=== PATIENT | female | born 1955 | race Caucasian/White ===

== ENCOUNTER 2018-04-05 12:20 | Day surgery (SDC) | payer BC ==
--- NOTE | 2018-03-28 14:56 | HP ---
CC: Dr. Lisa Marshall * PREOPERATIVE HISTORY AND PHYSICAL: DATE OF ADMISSION: 04/05/18 This patient is scheduled for same-day surgery admission by Dr. Dalton on , 04/05/18. DATE OF PREOPERATIVE HISTORY AND PHYSICAL EXAMINATION: 03/28/18. ATTENDING SURGEON: Jose Cruz Dalton MD * (dictated by Yaquelin Wahl NP) CHIEF COMPLAINT: Gallbladder disease. HISTORY OF PRESENT ILLNESS: The patient is a 62-year-old female referred to Dr. Dalton from Dr. Lisa Marshall for evaluation of cholelithiasis. She has had attacks of right upper quadrant abdominal pain over and into February with the most recent attack, 03/22/18. These are characterized by right upper quadrant abdominal pain that radiates to the back and can last up to 5 hours. She has also had heartburn type symptoms, which responded to omeprazole, and she is no longer taking that. She denies any change in the color of urine or stool. She had an ultrasound of the abdomen, 03/09/18, at [facility] that revealed cholelithiasis without pericholecystic fluid or abnormal wall thickening; also during her workup, she was found to have a "shadow" in the right lung field and a followup CT scan was done and it was completely within normal limits as reviewed by Dr. Dalton. Dr. Dalton has examined the patient and reviewed imaging and has discussed with the patient the diagnosis of symptomatic cholelithiasis and has recommended laparoscopic cholecystectomy as a same-day surgery procedure. 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 Dr. Dalton described the nature of the surgical procedure, the rationale for the procedure, the relevant risks and benefits, and today I reviewed the typical postoperative care and recovery. The patient has had a chance to ask questions and stated that she understands the information and is satisfied with the answers given to her questions. She will sign surgical consent on the day of surgery. PAST MEDICAL HISTORY: 1. Psoriatic arthritis; cervical disk disorder. 2. Multiple joint pain. PAST SURGICAL HISTORY: section x2 and hysterectomy for uterine fibroids. MEDICATIONS: 1. Premarin 0.3 mg p.o. daily. 2. Multivitamin with calcium and vitamin D 4 chews daily. 3. Folic acid 1 mg daily. She is holding the following immunosuppressant medications for 2 weeks preoperatively and 2 weeks postoperatively: 1. Methotrexate 2.5 mg 8 tablets p.o. weekly. 2. Enbrel 50 mg/mL 1 mL subcu weekly. 3. Arava 20 mg p.o. daily. ALLERGIES: The following medications have caused sensitivities: 1. HYDROXYCHLOROQUINE. 2. INDOMETHACIN. 3. DICLOFENAC. None of those medications have caused hives or dyspnea. FAMILY HISTORY: No known gallbladder disease. No bleeding tendencies or clotting disorders. No history of deep vein thrombosis or pulmonary embolism. SOCIAL HISTORY: She is ; she quit smoking 25 years ago. She drinks on average 1 glass of wine daily. REVIEW OF SYSTEMS: Constitutional: No fevers, chills, excessive fatigue, or weight loss. Endocrine: No diabetes or thyroid disease. Hematologic: No easy bruising or bleeding. She has never received a blood transfusion. Respiratory: No dyspnea on exertion. No chronic cough. Cardiovascular: No anginal chest pain or palpitations. Gastrointestinal: No current nausea or vomiting or diarrhea. No GI bleeding or constipation. No change in the color of stool. No change in bowel habits. No current heartburn. Genitourinary: No dysuria. No change in the color of urine. Musculoskeletal: Mild multiple joint pains related to psoriatic arthritis. Integumentary: No chronic rashes or skin changes. Neurologic: No headache or blurred vision. General: No history of deep vein thrombosis or pulmonary embolism. She reports with general anesthesia or IV sedation, it takes her a long time to wake up; she denies any history of MRSA infection. PHYSICAL EXAMINATION GENERAL SURVEY: The patient is a 62-year-old female, well developed, well nourished, in no acute distress. VITAL SIGNS: Height 62.75 inches, weight 145 pounds, body mass index 25.9. Blood pressure 122/70, pulse 72 and regular, respiratory rate 16, temperature 96.7 tympanic. HEENT: Benign. Anicteric sclerae. NECK: Supple. No cervical lymphadenopathy. Trachea is midline. LUNGS: Breath sounds bilaterally clear and equal. HEART: Regular rate and rhythm. No murmurs or rubs appreciated. ABDOMEN: Well-healed surgical scars. Active bowel sounds. Soft, flat, nontender throughout. Negative Crabtree sign. No palpable gallbladder. No guarding. No obvious masses or organomegaly. PELVIC: Exam deferred. RECTAL: Exam deferred. EXTREMITIES: Warm without edema or skin ulceration. NEUROLOGIC: Alert and oriented x3. Steady gait. BACK: No CVA tenderness. SKIN: Warm, dry, anicteric. IMPRESSION: Symptomatic cholelithiasis. PLAN: Same-day surgery admission to Dr. Dalton's service on , 04/05/18 , for laparoscopic cholecystectomy. DAYA WAHL, [employer] [id number]/[facility] #: [id number] ENRIQUE
[~2018-04-05 12:20] MED LIST: Buffered Lidocaine 0.9% SYRIN* 5 ML/SYR SYRINGE INTRADERM ONE; Dexamethasone TAB* 4 MG PO ONE; DiMENhydriNATE IV* 50 MG/ML VIAL IV PUSH PRN; Famotidine IV* 10 MG/ML 2 ML (20 mg) IV ONE; Lactated Ringers 1000 ML Bag* 1,000 ML IV SCH; Naloxone* 0.4 MG/ML 1 ML VIAL IV PRN; Ondansetron TAB* 4 MG PO ONE; PROCHLORPERAZINE INJ 5 MG/ML 2 ML VIAL IV PRN; Scopolamine 1.5 mg* PATCH TRANSDERM PRN; oxyCODONE/Acetamin 5/325 MG* TAB PO PRN
[2018-04-05] MEDS ORDERED: fentaNYL* 50 MCG/ML 2 ML VIAL (100 MCG VIAL) ONE ×2 (12:37→15:25)
[2018-04-05] MEDS ORDERED: Midazolam* 1 MG/ML 5 ML VIAL (5 MG) ONE (12:38)
[2018-04-05] MEDS ORDERED: KETAMINE HCL* 50 MG/ML 10 ML VIAL ONE (12:38)
[2018-04-05] MEDS ORDERED: Atracurium* 10 MG/ML 10 ML VIAL ONE (12:38)
[2018-04-05] MEDS ORDERED: Dexamethasone TAB* 4 MG ONE (12:40)
[2018-04-05] MEDS ORDERED: Ondansetron ODT TAB* 4 MG ONE (12:40)
[2018-04-05] MEDS ORDERED: Famotidine IV* 10 MG/ML 2 ML (20 mg) ONE (12:40)
[2018-04-05] MEDS ORDERED: ceFAZolin 2 GM PREMIX in ORs 2 GM/50 ML BAG IVPB ONE (13:41)
[2018-04-05] MEDS ORDERED: Bupivacaine 0.25% W/EPI* 10 ML SDV ONE (13:58)
[2018-04-05] MEDS ORDERED: Glycopyrrolate IV* 0.2 MG/ML 1 ML VIAL ONE (14:15)
[2018-04-05] MEDS ORDERED: Propofol* 10 MG/ML 20 ML BTL ONE (14:15)
[2018-04-05] MEDS ORDERED: EPHEDrine (Pressors)* 50 MG/ML VIAL ONE (14:18)
[2018-04-05] MEDS ORDERED: Ketorolac INJ* 30 MG/ML 1 ML VIAL ONE (14:40)
[2018-04-05] MEDS ORDERED: Metoprolol Tartrate IV* 1 MG/ML 5 ML VIAL ONE (14:41)
[2018-04-05] MEDS ORDERED: Morphine VIAL* 10 MG/ML 1 ML VIAL ONE (14:51)
[2018-04-05] MEDS ORDERED: Morphine VIAL* 4 MG/ML VIAL (1 ml vial) ONE (15:25)
[2018-04-05] MEDS: fentaNYL* 50 MCG/ML 2 ML VIAL (100 MCG VIAL) IV PRN ×4 (15:26→15:47)
[2018-04-05] MEDS: Morphine VIAL* 4 MG/ML VIAL (1 ml vial) IV PRN ×2 (15:31→15:40)
[2018-04-05 17:14] VITALS: BP 125/77
--- NOTE | 2018-04-05 20:08 | OP ---
CC: Jose Cruz Dalton MD; Dr. Lisa Marshall OPERATIVE REPORT: DATE OF OPERATION: 04/05/18 DATE OF : 57 SURGEON: Jose Cruz Dalton MD PARIMUTUEL CLERK: Yaquelin Lawson NP ANESTHESIOLOGIST: Dr. Darnell. ANESTHESIA: General anesthetic, local infiltration. PRE-OP DIAGNOSIS: Biliary colic. POST-OP DIAGNOSIS: Biliary colic. OPERATIVE PROCEDURE: Laparoscopic cholecystectomy. DESCRIPTION OF PROCEDURE: The patient was supine on the operative table. After adequate general ane sthetic, compression stockings, Elayne Hugger warmer, and intravenous antibiotics, the abdomen was prep ped with antiseptic, draped in a sterile fashion. Local infiltrative anesthesia was administered. A small umbilical incision was created. Blunt port cannula was placed and insufflation was carried ou t with carbon dioxide. Additional cannulae, a 12-mm subxiphoid and 5-mm right upper quadrant and rig ht anterior axillary line were placed through small stab wounds under direct vision. The gallbladder was tented upward. There was some chronic scarring. The critical view of safety was obtained. The re was a long cystic duct and long cystic artery, which also had a posterior branch. The dissection was carried about two-thirds way up the gallbladder to ensure that this was truly the anatomy and the n these were all clipped and divided, and the gallbladder taken off the liver bed. There was a littl e bile spillage. No stone spillage. The gallbladder was placed in a retrieval bag. Hemostasis was obtained using electrocautery. The area was irrigated and free fluid was suctioned out. Everything w as in good condition. The cannulae were removed. The pneumoperitoneum was allowed to escape. The f ascia of the 2 larger incisions was closed with 0 Vicryl and skin with 5-0 Vicryl followed by Steri-S trips. The patient was awakened and brought to Recovery in good condition. No complications. No dr vega. Pathologic specimen is gallbladder. Sponge and instrument counts correct. Estimated blood loss is 20 mL. [id number]/[facility] #: [id number]
[2018-04-08] MEDS ORDERED: Scopolamine PATCH Remove* 1 NOTE MISC PATCH OFF ONE (05:58)
== END 2018-04-05 17:15 | disposition home or self-care (01) ==
LOC: OR 12:20
PROVIDERS: ATTEND Surgery
DX: K80.12 Calculus of gallbladder with acute and chronic cholecystitis without obstruction (principal); Z87.891 Personal history of nicotine dependence; L40.50 Arthropathic psoriasis, unspecified
CPT/HCPCS: 88304; A9270-GY; J0690; J1885; J2250; J2270; J2704; J3010; J3490; J8540

== ENCOUNTER → 2018-07-13 10:19 | Day surgery (SDC) | payer BC ==
[~2018-07-13 10:19] MED LIST changes: -Buffered Lidocaine 0.9% SYRIN* 5 ML/SYR SYRINGE INTRADERM ONE; +Buffered Lidocaine 1% SYRIN* 1 ML/SYRINGE INTRADERM ONE; -Dexamethasone TAB* 4 MG PO ONE; -DiMENhydriNATE IV* 50 MG/ML VIAL IV PUSH PRN; +Famotidine IV* 10 MG/ML 2 ML (20 mg) ONE; +Lidocaine 2% PF * 5 ML VIAL ONE; +Midazolam* 1 MG/ML 5 ML VIAL (5 MG) ONE; +Ondansetron INJ* 2 MG/ML VIAL ONE; -Ondansetron TAB* 4 MG PO ONE; -PROCHLORPERAZINE INJ 5 MG/ML 2 ML VIAL IV PRN; +Propofol* 10 MG/ML 20 ML BTL ONE; -Scopolamine 1.5 mg* PATCH TRANSDERM PRN; +fentaNYL* 50 MCG/ML 2 ML VIAL (100 MCG VIAL) ONE; -oxyCODONE/Acetamin 5/325 MG* TAB PO PRN
[2018-07-13 14:06] VITALS: BP 136/81
--- NOTE | 2018-07-14 01:20 | PRO ---
CC: Dr. Lisa Marshall * ESOPHAGOGASTRODUODENOSCOPY AND COLONOSCOPY REPORT: DATE OF PROCEDURE: 07/13/18 - [facility] PHYSICIAN: Dr. Lisa Marshall. INDICATION FOR PROCEDURE: GERD and average risk screening colonoscopy. PROCEDURE PERFORMED: Complete esophagogastroduodenoscopy with biopsies and complete colonoscopy with biopsy polypectomy. MEDICATIONS GIVEN: Please see Anesthesia record. DESCRIPTION OF PROCEDURE: After the EGD and colonoscopy procedure including the risks, benefits, and alternatives, with the risks not limited to perforation , surgery, missed lesions and/or were explained to the patient, written informed consent was obtained. IV medication was given and a bite-block was placed between the teeth. The adult Olympus gastroscope was then inserted into the patient's oropharynx, into the tubular esophagus. There was some scant nodularity at the GE junction, this was biopsied, no distinct Duffy's was noted. The scope was advanced to the lower esophageal sphincter and retroflexed. A 2 cm hiatal hernia was appreciated. The scope was then advanced into the antrum and remainder of the stomach, the views showed mild gastritis, this was biopsied for CLOtesting. The scope was then advanced through a widely patent pylorus into the duodenal bulb, C loop, and distal duodenum. These were normal in appearance, but given her symptomatology, this was biopsied for villous blunting. The scope was then removed from the patient. She tolerated the procedure well. She was then rotated, given additional IV sedation medication. Next, a rectal exam was performed and the rectal exam was unremarkable. The adult Olympus colonoscope was then inserted into the patient' s rectum and advanced very carefully through the entirety of the colon into the cecal base. Her colon was very tortuous, especially in the sigmoid colon, with a significant fixed area at around 30 cm. Eventually, with nursing assistance and position changes, I was able to navigate this. After that, the scope was able to be advanced to the cecum with relative ease. The cecal base was carefully inspected and normal in appearance. The terminal ileal valve was identified and intubated x4 to 5 cm and normal. Photograph was taken of the cecal cap. Over the next 12 minutes, the scope was carefully withdrawn, inspecting the mucosa. In the sigmoid colon, a small diminutive polyp was removed with biopsy polypectomy in its entirety. On return to the rectum, direct views were normal. On retroflexion, grade 1 internal hemorrhoids were appreciated. The scope was then removed from the patient. She tolerated the procedure well. She returned to the recovery room in stable condition. IMPRESSION: 1. Complete esophagogastroduodenoscopy with biopsies. 2. Erosive esophagitis with some scant nodularity, biopsied. 3. Hiatal hernia. 4. Gastritis, biopsied. 5. Normal duodenum, biopsied. 6. Colonoscopy of the terminal ileum. 7. Good prep. 8. Tortuous and fixed sigmoid. 9. Sigmoid colon polyp. 10. Internal hemorrhoids. RECOMMENDATIONS: She should continue her PPI awaiting the results of these biopsies. With her hiatal hernia, I suspect that her reflux may continue to reoccur and she may need long-term therapy, and discussing the risks and benefits of PPI therapy. In addition, we will plan on repeat colonoscopy in 5 to 10 years' time. [id number]/[facility] #: [id number]
== END | disposition home or self-care (01) ==
LOC: OR 10:19
PROVIDERS: ATTEND Internal Medicine Gastroenterology
DX: K22.10 Ulcer of esophagus without bleeding (principal); K21.9 Gastro-esophageal reflux disease without esophagitis; K44.9 Diaphragmatic hernia without obstruction or gangrene; K29.00 Acute gastritis without bleeding; K63.5 Polyp of colon; K64.8 Other hemorrhoids; R11.0 Nausea; K59.00 Constipation, unspecified; M81.0 Age-related osteoporosis without current pathological fracture; R10.10 Upper abdominal pain, unspecified; Z87.891 Personal history of nicotine dependence; Z12.11 Encounter for screening for malignant neoplasm of colon
CPT/HCPCS: 87077; 88305; J2250; J2405; J2704; J3010